=== PATIENT | female | born 1985 | race Caucasian/White ===

== ENCOUNTER 2020-07-02 14:42 | Inpatient (IN) ==
[2020-07-02] MEDS ORDERED: BISACODYL 10 MG SUPP.RECT RC PRN (16:06)
[2020-07-02] MEDS ORDERED: SENNOSIDES 8.6 MG TABLET PO PRN (16:06)
[2020-07-02] MEDS ORDERED: IBUPROFEN 800 MG TABLET PO PRN ×2 (16:06)
[2020-07-02] MEDS ORDERED: HYDROCORTISONE 30 APPL TUBE TP PRN (16:06)
[2020-07-02] MEDS ORDERED: OXYTOCIN/0.9 % SODIUM CHLORIDE 30 UNITS/500 ML BAG IV ONE (16:06)
[2020-07-02] MEDS ORDERED: BENZOCAINE/MENTHOL 81 SPRAY CAN TP PRN (16:06)
[2020-07-02] MEDS ORDERED: oxyCODONE HCL/ACETAMINOPHEN 1 TAB TABLET PO PRN (16:06)
[2020-07-02] MEDS ORDERED: GLYCERIN/WITCH HAZEL LEAF 40 APPL BOX TP PRN (16:06)
[2020-07-02 16:17] LABS: Cocaine Ur Negative (NEGATIVE); Urine Barbiturate Negative (NEGATIVE); Urine Benzodiazepines Negative (NEGATIVE); Urine Opiates Negative (NEGATIVE); Urine PCP Negative (NEGATIVE); Urine THC Negative (NEGATIVE)
[2020-07-02 16:49] LABS: Urine Bilirubin Negative (NEGATIVE); Urine Blood Negative /ul (NEGATIVE); Urine Ketone Negative (NEGATIVE); Urine Nitrite Negative (NEGATIVE); Urine Protein Negative (NEGATIVE); Urine Urobilinogen Normal (NORMAL)
--- NOTE | 2020-07-02 16:52 | HP ---
Chief Complaint - Chief Complaint Date of Service: 07/02/20 Time of Service: 16:16 Chief Complaint: s/p in [facility] History of Present Illness: 34 yo at 38w3d delivered a viable male at 1137 today in [facility]. Patient states her water broke last night around 1730 and began having painful contractions this morning. She denies N/V/F/C. Admitted to meth use 3 d ago to [facility] physician. Denied use since 2016 to us. This complicated by AMA, no care (had 9w u/s at [facility] ER this ), smoker, meth use, and h/o migraines, h/o ectopic , and no elevated BPs. Rh positive Rubella unknown GBS unknown Medical History (Last Reviewed 07/02/20 @ 16:43 by Kimani Cooper DO) Back pain Bulging disc Chronic pain syndrome Lumbar herniated disc Migraine Neuralgia Sciatica Spinal stenosis Ectopic Surgical History: Surgical History (Last Reviewed 07/02/20 @ 16:43 by Kimani Cooper DO) H/O laparoscopy Onset Date: ~07/2007 ectopic removal Family History: Family History (Last Reviewed 07/02/20 @ 16:43 by Kimani Cooper DO) Mother Fibromyalgia Father Rheumatoid arthritis Social History: (Last Updated 07/02/20 @ 16:44 by Kimani Cooper DO) Social History: Highest level of school completed/degree received: Associate degree: academi Tobacco: Smoking Status: Current every day smoker tobacco type: cigarettes Smoking cigarettes per day: 10 Alcohol: alcohol intake: current alcohol intake frequency: holiday/special occasion Substance Use: substance use type: does not use Review Of Systems (GEN) - Review of Systems Generalized/Overall Review: Present: No Symptoms Reported EENTM: Present: No Symptoms Reported Respiratory: Present: No Symptoms Reported Cardiac: Present: No Symptoms Reported Abdominal: Present: Abdominal Pain - mild cramping Genitourinary: Present: No Symptoms Reported Musculoskeletal: Present: No Symptoms Reported Neurological: Present: No Symptoms Reported Skin: Present: No Symptoms Reported Endocrine: Present: No Symptoms Reported Allergies/Adverse Reactions: Allergies Allergy/AdvReac Type Severity Reaction Status Date / Time propranolol Allergy Mild nose bleed Verified 07/02/20 16:46 cephalexin [From Keflex] Allergy nausea/vomi Verified 12/21/19 13:45 ting eletriptan [From Relpax] Allergy Anaphylaxis Verified 12/21/19 13:45 ketorolac [From Toradol] Allergy hives at Verified 12/21/19 13:45 injeciton site sumatriptan [From Imitrex] Allergy Anaphylaxis Verified 12/21/19 13:45 carisoprodol [From Soma] AdvReac drowsy Verified 12/21/19 13:45 rizatriptan [From Maxalt] AdvReac throat Verified 12/21/19 13:45 swelling Home Medications: HOME MEDICATIONS Acetaminophen [Tylenol] 500 mg PO PRN 07/02/20 [Last Taken Unknown] Vits96/Iron Fum/Folic [ S] 1 tab PO DAILY 07/02/20 [Last Taken Unknown] Exam - Exam Vital Signs: Vital Signs - Last Taken Temp 36.6 C 07/02/20 14:42 Pulse 85 07/02/20 15:29 Resp 20 07/02/20 15:29 BP 163/86 H 07/02/20 15:29 Pulse Ox 99 07/02/20 15:29 Constitutional: Present: Alert, Oriented x3, Cooperative, No distress, Looks Older than stated age ENT Exam: Present: hearing grossly normal Neck: Present: non-tender, trachea midline. Absent: thyromegaly Breasts: Present: Exam deferred Respiratory: Present: lungs clear, no respiratory distress Cardiovascular/Chest: Present: normal peripheral pulses, regular rate, rhythm Abdomen: Present: soft, nontender, no rebound tenderness, other - uterus - firm, NT, at U-1 /Rectal: Present: Exam deferred Extremity: Present: no pedal edema, no calf tenderness Skin Exam: Present: warm/dry, no cyanosis, pallor Neurologic: Present: alert, normal mood/affect, oriented x 3 Appearance: Present: appropriate appearance Eye contact: Present: cooperative, good eye contact, normal speech Thoughts: Present: normal thought pattern, normal mood /affect Diagnostic Studies: Abnormal Lab Results 07/02/20 Range/Units 15:59 Ur Random Creatinine 32.3 L (60-200) mg/dL Laboratory Results Ur Random Creatinine 32.3 mg/dL (60-200) L 07/02/20 15:59 U Random Total Protein 6.0 mg/dL (0-12) 07/02/20 15:59 U Gilman Prot/Creat Ratio 186 mg/gm (0-199) 07/02/20 15:59 Assessment/Plan - Assessment/Plan (1) Gestational hypertension Assessment: Severe range BPs in ER. After delivery BPs remain elevated but not in severe range. Will check preeclamptic labs and monitor closely. Problem: Acute Qualifiers: Trimester: third trimester Qualified Code(s): O13.3 - Gestational [pregnanc y-induced] hypertension without significant proteinuria, third trimester (2) AMA (advanced maternal age) multigravida 35+ Problem: Chronic Qualifiers: Trimester: third trimester Qualified Code(s): O09.523 - Supervision of elderly multigravida, third trimester (3) No care in current Problem: Acute Qualifiers: Trimester: third trimester Qualified Code(s): O09.33 - Supervision of with insufficient care, third trimester (4) Methamphetamine use Problem: Chronic (5) Smoker Problem: Chronic (6) History of migraine headaches Problem: Chronic (7) History of ectopic Problem: Chronic
[2020-07-02 17:04] LABS: Urine Appearance Clear (CLEAR); Urine Bacteria TRACE; Urine Color Yellow; Urine RBC None Seen /hpf (0-5); Urine WBC None Seen /hpf (0-5)
[2020-07-02 17:49] LABS: Hematocrit 32.9 % (37.0-47.0); Mean Cell Volume 84.6 fl (78-100); Mean Corpuscular Hemoglobin 28.3 pg (27-31); Mean Corpuscular Hgb Conc 33.4 g/dl (32-36); Mean Platelet Volume 10.4 fl (8-12.5); Platelet Count 393 K/mm3 (150-450); Red Blood Count 3.89 M/mm3 (4.2-5.4); Red Cell Distribution Width 12.5 % (11.5-14.0); White Blood Count 23.8 K/mm3 (4.0-10.5)
[2020-07-02 17:52] LABS: Total Cells Counted 100
[2020-07-02 18:00] LABS: Albumin * 2.1 gm/dl (3.4-5.0); Anion Gap 14.6 mmol/L (6.8-13.8); BUN/Creatinine Ratio 11.6 (9.0-21.6); Bilirubin, Total 0.2 mg/dL (0.0-1.1); Ca. Corrected For Albumin 9.4 mg/dL (8.4-10.2); Calcium * 8.2 mg/dL (7.9-10.9); Carbon Dioxide 22.4 mmol/L (24-32.6); Total Protein 5.8 gm/dL (6.2-8.2)
[2020-07-02 19:05] LABS: Lymphocyte 7 % (20-51); Monocyte 6 % (0-9); Neutrophil 87 % (42-75); Neutrophil # 20.7 K/mm3 (1.3-6.0)
[2020-07-02 19:06] LABS: Anisocytosis 1+; Platelet Estimate Normal (NORMAL)
[2020-07-03] MEDS: DOCUSATE SODIUM 100 MG CAPSULE PO SCH ×3 (03:38→20:42)
--- NOTE | 2020-07-03 07:48 | PN ---
Subjective - Date and Time Seen Date: 07/03/20 Time: 07:45 Objective - Vitals Vitals: Last Vital Signs Temp 37.0 C 07/03/20 02:31 Pulse 118 H 07/03/20 02:31 Resp 18 07/03/20 02:31 BP 144/89 H 07/03/20 02:31 Pulse Ox 99 07/03/20 02:31 Patient denies headache, visual changes, or epigastric pain. Considering [id number] difficulty with baby latching on. Lochia wnl abdomen - soft, nontender Uterus -firm, at umbilicus - 1 No calf tenderness, DTR-2/4, no clonus Impression: day #1 - s/p spontaneous vaginal delivery. Gestational hypertension in severe range during labor, mild since delivery. Plan: Continue routine care. Continue close observation of blood pressures. consult. - Abnormal Lab Findings Abnormal Lab Findings: Abnormal Lab Results 07/02/20 07/02/20 07/02/20 Range/Units 15:51 15:59 16:18 WBC 23.8 H (4.0-10.5) K/mm3 RBC 3.89 L (4.2-5.4) M/mm3 Hgb 11.0 L (12.5-16.0) gm/dL Hct 32.9 L (37.0-47.0) % Neutrophils % (Manual) 87 H (42-75) % Lymphocytes % (Manual) 7 L (20-51) % Neutrophils # (Manual) 20.7 H (1.3-6.0) K/mm3 Monocytes # (Manual) 1.4 H (0.0-1.0) k/mm3 Carbon Dioxide (24-32.6) mmol/L Anion Gap (6.8-13.8) mmol/L Alkaline Phosphatase (50-170) U/L Total Protein (6.2-8.2) gm/dL Albumin (3.4-5.0) gm/dl Ur Random Creatinine 32.3 L (60-200) mg/dL Urine Amphetamine Positive H (NEGATIVE) 07/02/20 Range/Units 16:18 WBC (4.0-10.5) K/mm3 RBC (4.2-5.4) M/mm3 Hgb (12.5-16.0) gm/dL Hct (37.0-47.0) % Neutrophils % (Manual) (42-75) % Lymphocytes % (Manual) (20-51) % Neutrophils # (Manual) (1.3-6.0) K/mm3 Monocytes # (Manual) (0.0-1.0) k/mm3 Carbon Dioxide 22.4 L (24-32.6) mmol/L Anion Gap 14.6 H (6.8-13.8) mmol/L Alkaline Phosphatase 259 H (50-170) U/L Total Protein 5.8 L (6.2-8.2) gm/dL Albumin 2.1 L (3.4-5.0) gm/dl Ur Random Creatinine (60-200) mg/dL Urine Amphetamine (NEGATIVE) Assessment/Plan - Problems/Diagnosis (1) Gestational hypertension Problem: Acute Qualifiers: Trimester: third trimester Qualified Code(s): O13.3 - Gestational [pregnan cy-induced] hypertension without significant proteinuria, third trimester (2) AMA (advanced maternal age) multigravida 35+ Problem: Chronic Qualifiers: Trimester: third trimester Qualified Code(s): O09.523 - Supervision of elderly multigravida, third trimester (3) No care in current Problem: Acute Qualifiers: Trimester: third trimester Qualified Code(s): O09.33 - Supervision of with insufficient care, third trimester (4) Methamphetamine use Problem: Chronic (5) Smoker Problem: Chronic (6) History of migraine headaches Problem: Chronic (7) History of ectopic Problem: Chronic
[2020-07-03] MEDS: PRENATAL VITS96/IRON FUM/FOLIC 1 TAB TABLET PO SCH (09:46)
[2020-07-04] MEDS ORDERED: NIFEdipine 30 MG TAB.SR.24H PO SCH (09:00)
--- NOTE | 2020-07-04 09:01 | PN ---
Subjective - Date and Time Seen Date: 07/04/20 Time: 08:59 Objective - Vitals Vitals: Last Vital Signs Temp 36.7 C 07/04/20 07:10 Pulse 93 07/04/20 07:10 Resp 20 07/04/20 07:10 BP 154/99 H 07/04/20 07:10 Pulse Ox 99 07/04/20 07:10 Patient denies complaints. Denies headache, visual changes, or epigastric pain Lochia wnl abdomen - soft, nontender Uterus -firm, at umbilicus - 2 No calf tenderness Impression: day #2 - s/p spontaneous vaginal delivery. Gestational hypertension-persistent . Baby staying for IV antibiotics. Plan: Routine discharge instructions. Board for baby. Will start on low-dose nifedipine due to blood pressures creeping near severe range. Assessment/Plan - Problems/Diagnosis (1) Gestational hypertension Problem: Acute Qualifiers: Trimester: third trimester Qualified Code(s): O13.3 - Gestational [pregnanc y-induced] hypertension without significant proteinuria, third trimester (2) AMA (advanced maternal age) multigravida 35+ Problem: Chronic Qualifiers: Trimester: third trimester Qualified Code(s): O09.523 - Supervision of elderly multigravida, third trimester (3) No care in current Problem: Acute Qualifiers: Trimester: third trimester Qualified Code(s): O09.33 - Supervision of with insufficient care, third trimester (4) Methamphetamine use Problem: Chronic (5) Smoker Problem: Chronic (6) History of migraine headaches Problem: Chronic (7) History of ectopic Problem: Chronic
[2020-07-04] MEDS: DOCUSATE SODIUM 100 MG CAPSULE PO SCH (11:03)
[2020-07-04] MEDS: PRENATAL VITS96/IRON FUM/FOLIC 1 TAB TABLET PO SCH (11:03)
[2020-07-04 11:10] VITALS: BP 168/99
--- NOTE | 2020-07-04 12:21 | DS ---
OB Discharge Summary (1) Gestational hypertension Status: Acute Qualifiers: Trimester: third trimester Qualified Code(s): O13.3 - Gestational [-induced] hypertension without significant proteinuria, third trimester (2) AMA (advanced maternal age) multigravida 35+ Status: Chronic Qualifiers: Trimester: third trimester Qualified Code(s): O09.523 - Supervision of yohan sarkar multigravida, third trimester (3) No care in current Status: Acute Qualifiers: Trimester: third trimester Qualified Code(s): O09.33 - Supervision of with insufficient care, third trimester (4) Methamphetamine use Status: Chronic (5) Smoker Status: Chronic (6) History of migraine headaches Status: Chronic (7) History of ectopic Status: Chronic Delivery Date: 07/02/20 - [facility] Delivery Time: 11:37 :: 3 Para:: 2 Gestational weeks:: 38 Gestational days:: 3 /OP Complications: GHTN Discharge Diagnosis: Term -Delivered, Gestational Hypertension - Discharge Information Date of Discharge: 07/04/20 Hospital Course: 34-year-old 3 now para 2 delivered a 38 3/7-week baby in [facility] and was transferred to our facility for care. care was complicated by elevated blood pressures for mother and meth withdrawal for baby. The baby was transferred to [facility] for treatment. Mother was discharged to home on antihypertensive medication to follow-up in the next 1 to 2 weeks. Preeclampsia precautions Discharge Location: Home Disposition: Home self-care Condition: Stable Referrals: Rocio Fonseca ARNP [Primary Care Provider] - Activity on Discharge:: Activity as tolerated, Pelvic Rest Discharge Diet: General/regular food Additional Patient Instructions (free text): Radha will follow up with Dr. Cooper on July 12 @ 9:[address] Cooper. Continue to take vitamins. IF you have questions, or comments please call the [facility] [phone], [facility] [phone] Or [facility] [phone]. Prescriptions (Any new or edited meds): Ferrous Sulfate 325 mg PO DAILY #60 tab Ibuprofen [Motrin] 200 - 800 mg PO Q6H PRN #100 tab PRN Reason: Pain NIFEdipine [Procardia Xl] 30 mg PO DAILY #30 tab.sr.24h Transmission Status: Received by [id number] Complete Home Medications List: Complete Home Medication List: Acetaminophen [Tylenol] 500 mg PO PRN 07/02/20 Vits96/Iron Fum/Folic [ S] 1 tab PO DAILY 07/02/20 Ferrous Sulfate 325 mg PO DAILY #60 tab 07/04/20 Ibuprofen [Motrin] 200 - 800 mg PO Q6H PRN #100 tab 07/04/20 NIFEdipine [Procardia Xl] 30 mg PO DAILY #30 tab.sr.24h 07/04/20 - Plan Discharge to:: Home Follow up in office in:: 2 weeks - [place] Information Sex: Male Score 1 min: 8 Score 5 min: 9 Complications: Other - meth positive, withdrawl s/s
[2020-07-04 15:28] LABS: Hep B Surface Antigen Confirm DNR
[2020-07-04 16:24] LABS: Hepatitis B Surface Antigen NON-REACTIVE (NON-REACTIVE)
== END 2020-07-04 14:30 | disposition home or self-care (01) | DRG 776 ==
LOC: OB 14:42
PROVIDERS: ADMIT Obstetrics & Gynecology; ATTEND Obstetrics & Gynecology
DX: F15.90 Other stimulant use, unspecified, uncomplicated; O13.5 Gestational [pregnancy-induced] hypertension without significant proteinuria, complicating the puerperium; O99.335 Smoking (tobacco) complicating the puerperium; O99.325 Drug use complicating the puerperium